=== PATIENT | female | born 1975 | race Caucasian/White ===

== ENCOUNTER 2019-08-17 16:17 | Emergency (ER) | payer BC ==
[2019-08-17 16:37] VITALS: BP 137/85; PULSE 87; TEMP 98.4; BMI 24.2
--- NOTE | 2019-08-17 17:38 | PDOC ---
History of Present Illness - General Chief Complaint: Vaginal Bleeding Stated Complaint: HEAVY VAGINAL BLEEDING Time Seen by Provider: 08/17/19 16:26 History Source: Patient Exam Limitations: No Limitations - History of Present Illness Travel History: No Initial Comments: 08/17/19 17:37 44y F presents with heavy vaginal bleeding since this morning. around 11am. Patient states she was asymptomatic and doing well the last couple days is approximately 11:00 when she started bleeding vaginally very heavily. Patient notes that she soaked through sevearl tampons and pads and had soiled her clothes. Patient denies any associated fever, chills, back pain, cramping, abdominal pain, Dysuria, diarrhea, chest pain, lightheadedness, palpitations, shortness of breath. Patient notes that since arrival her vaginal bleeding has improved substantially. Patient is currently sexually active with her denies any vaginal discharge. She has had an IUD since October, But usually only has light periods. (LMP end of july) ROS: Constitutional - no reported Fever, Chills, HEENT: no reported vision changes, sore throat Respiratory: no reported cough, sob, hemoptysis Cardiac: no reported chest pain, palpitations, light headedness, leg swelling Abd/GI: no reported abd pain, nausea, vomiting, blood per rectum, melena, diarrhea : +Vaginal bleeding no reported dysuria, frequency, discharge Musculskelatal - no reported back pain, joint swelling skin - no reported bruising, erythema, rash neurological: no reported headache, numbness, focal weakness, tingling, ataxia, hematologic: no reported easy bruising, easy bleeding Exam: GENERAL: The patient is awake, alert, and fully oriented, Nontoxic - in no acute distress. HEAD: Normocephalic, atraumatic. EYES: extraocular movements intact, sclera anicteric, conjunctiva clear. ENT: Normal voice, Moist mucous membranes. NECK: Normal range of motion, supple LUNGS: Breath sounds equal, clear to auscultation bilaterally. No wheezes, no rhonchi, no rales. HEART: Regular rate and rhythm, normal S1 and S2 without murmur, rub or gallop. ABDOMEN: Soft, nontender, No guarding, no rebound. No CVA tenderness WELDING MANAGER: no adnexal tenderness, no discharge, scant bloody discharge in vaginal vault, no active bleeding EXTREMITIES: Normal range of motion, no edema. NEUROLOGICAL: No facial assymetry, Normal speech, PSYCH: Normal mood, normal affect. SKIN: Warm, Dry, normal turgor, ddx: , menorahgia, ua reveiwed, noted for trace blood no signs of infection hcg negative pt without any discomfort currently nor signs of bleeding Patient patient is feeling well, no abdominal pain no signs of anemia. recommended pelvic US, however pt given option to fu with knife glazer tomorrow for outpatient US rather than wait for our US here strict return precautions were discussed I discussed the physical exam findings, ancillary test results and final diagnoses with the patient. I answered all of the patient's questions. The patient was satisfied with the care received and felt comfortable with the discharge plan and treatment plan. The patient will call their primary care physician within 24 hours to arrange follow-up and will return to the Emergency Department with any new, persistent or worsening symptoms. Past History - Past Medical History Allergies/Adverse Reactions: Allergies Allergy/AdvReac Type Severity Reaction Status Date / Time No Known Allergies Allergy Unverified 08/17/19 16:19 Home Medications: Ambulatory Orders Sertraline HCl [Zoloft] 50 mg PO DAILY 08/17/19 COPD: Yes Other medical history: DENIES - Psycho Social/Smoking Cessation Hx Smoking History: Never smoked Information on smoking cessation initiated: No Hx Alcohol Use: Yes (SOCIAL) Drug/Substance Use Hx: No *Physical Exam - Vital Signs Last Vital Signs Temp Pulse Resp BP Pulse Ox 98.4 F 87 16 137/85 100 08/17/19 16:19 08/17/19 16:19 08/17/19 16:19 08/17/19 16:19 08/17/19 16:19 Discharge - Discharge Information Problems reviewed: Yes Clinical Impression/Diagnosis: Vaginal bleeding Condition: Improved Disposition: HOME - Admission No - Follow up/Referral Referrals: Lara Kohli MD [Primary Care Provider] - - Patient Discharge Instructions Patient Printed Discharge Instructions: DI for Vaginal Bleeding Additional Instructions: Return to the emergency department immediately with ANY new, persistent or worsening symptoms Including any bleeding, Abdominal pain, lightheadedness, palpitations, shortness of breath, chest pain, fevers, chills or any other concerns. You MUST call and follow up with your Jewel Bearing Grinder for further evaluation of your symptoms. Results were discussed with you. Please make sure your doctor reviews the results of your emergency evaluation. Your Emergency Department visit is not complete without a follow up with your doctor. Print Language: MICRONESIAN - Post Discharge Activity
[2019-08-17 18:29] LABS: EPITHELIAL CELLS FEW /hpf
== END 2019-08-17 18:37 | disposition home or self-care (01) ==
LOC: FER 16:17
DX: N93.9 Abnormal uterine and vaginal bleeding, unspecified (principal); J44.9 Chronic obstructive pulmonary disease, unspecified
CPT/HCPCS: 81003; 81015; 84703; 99282-25